=== PATIENT | male | born 1975 | race Caucasian/White ===

== ENCOUNTER 2024-04-27 22:35 | Emergency (ER) | payer MEDICAID ==
[~2024-04-27] VITALS: Ht 180.3 cm; Wt 76.3 kg
[2024-04-27 22:53] VITALS: BP 130/95; PULSE 100; RESP 18; TEMP 98.4; O2SAT 96
[2024-04-27] MEDS: mag hydrox/Alum hydrox/simeth 30ml oral suspension PO ONE (23:39)
[2024-04-27] MEDS: LIDOcaine 2% Viscous 15ml cup MM PRN (23:40)
== END 2024-04-27 23:49 | disposition home or self-care (01) ==
LOC: ER 22:36
DX: K22.89 Other specified disease of esophagus (principal)
CPT/HCPCS: 70360; 99283

== ENCOUNTER 2024-07-17 18:03 | Emergency (ER) | payer MEDICAID | END 2024-07-17 19:18 | disposition left against medical advice (07) | LOC: ER 18:04 | DX: Z53.21 Procedure and treatment not carried out due to patient leaving prior to being seen by health care provider (principal) ==

== ENCOUNTER 2025-01-31 20:27 | Emergency (ER) | payer MEDICAID, OTHER ==
[~2025-01-31] VITALS: Ht 180.3 cm; Wt 79.1 kg
[2025-01-31 20:29] VITALS: BP 140/86; PULSE 101; RESP 20; TEMP 98.2; O2SAT 99
== END 2025-01-31 22:26 | disposition left against medical advice (07) ==
LOC: ER 20:27
DX: T78.49XA Other allergy, initial encounter (principal); Z53.21 Procedure and treatment not carried out due to patient leaving prior to being seen by health care provider; Y92.89 Other specified places as the place of occurrence of the external cause